=== PATIENT | male | born 1940 | race Caucasian/White ===

== ENCOUNTER 2020-05-11 12:39 | Outpatient (CLI) | payer MEDICARE, BC | END 2020-05-11 23:59 | disposition home or self-care (01) | LOC: VAS 12:39 | PROVIDERS: ATTEND Specialist | DX: G45.9 Transient cerebral ischemic attack, unspecified (principal); H53.9 Unspecified visual disturbance; R42 Dizziness and giddiness | CPT/HCPCS: 93880 ==

== ENCOUNTER 2020-06-04 08:28 | Outpatient (CLI) | payer MEDICARE, BC ==
[2020-05-30 10:09] LABS: BLOOD UREA NITROGEN 24 MG/DL (7-18); CREATININE 1.15 MG/DL (0.60-1.10); eGFR 61 ML/MIN
[2020-06-04] MEDS ORDERED: iohexol 350MG/ML 100ml bottle IV ONE (09:08)
== END 2020-06-04 23:59 | disposition home or self-care (01) ==
LOC: 64 CT 08:28
PROVIDERS: ATTEND Surgery
DX: Z01.818 Encounter for other preprocedural examination (principal)
CPT/HCPCS: 36415; 70498; 82565; 84520; Q9967

== ENCOUNTER 2021-12-02 04:42 | Emergency (ER) | payer MEDICARE, BC ==
[~2021-12-02] VITALS: Ht 190.5 cm; Wt 81.8 kg
[~2021-12-02 04:42] MED LIST: AMLO2.5T2 PO; ASCO-157 PO; ASPI-1264 PO; BETA1POW PO; CHOL2400 PO; FINA5TAB11 PO; LEVO175T2 PO; LISI40TA13 PO; ROSU10TA2 PO; UBIQ100C2 PO; ZINC30TA2 PO; [UNRECOGNIZED DRUG - CODE] PO
[2021-12-02 04:55] VITALS: BP 179/94
[2021-12-02 05:42] LABS: BASOPHILS % (AUTO) 0.9 % (0-1); EOSINOPHILS # (AUTO) 0.2 X10'3 (0-0.9); EOSINOPHILS % (AUTO) 3.9 % (0-6); HEMATOCRIT 41.4 % (42.0-52.0); HEMOGLOBIN 14.1 g/dl (14.0-17.9); LYMPHOCYTES # (AUTO) 1.1 X10'3 (1.1-4.8); LYMPHOCYTES % (AUTO) 27.9 % (21-51); MEAN CORPUSCULAR HEMOGLOBIN 31.5 PG (27.0-31.0); MEAN CORPUSCULAR VOLUME 92.7 FL (78-98); MEAN PLATELET VOLUME 8.2 FL (7.4-10.4); MONOCYTES # (AUTO) 0.4 X10'3 (0-0.9); MONOCYTES % (AUTO) 9.6 % (2-12); NEUTROPHILS # (AUTO) 2.3 X10'3 (1.8-7.7); NEUTROPHILS % (AUTO) 57.7 % (42-75); PLATELET COUNT 177 X10'3 (140-440); RED BLOOD COUNT 4.47 X10'6 (4.70-6.10); RED CELL DISTRIBUTION WIDTH 13.5 % (11.5-14.5)
[2021-12-02 05:55] LABS: ALANINE AMINOTRANSFERASE 56 U/L (12-78); ALBUMIN/GLOBULIN RATIO 1.2 (1.1-1.5); ALKALINE PHOSPHATASE 55 IU/L (46-116); ANION GAP 9 (8-16); ASPARTATE AMINO TRANSFERASE 49 U/L (10-37); BILIRUBIN,TOTAL 0.4 MG/DL (0.1-1.0); BLOOD UREA NITROGEN 24 MG/DL (7-18); BUN/CREATININE RATIO 19.2 (5.4-32.0); CALCIUM 8.7 MG/DL (8.5-10.1); CHLORIDE 106 MMOL/L (99-107); CREATININE 1.25 MG/DL (0.60-1.10); GLUCOSE 113 MG/DL (70-104); POTASSIUM 4.1 MMOL/L (3.5-5.1); SODIUM 144 MMOL/L (135-145); TOTAL PROTEIN 7.4 G/DL (6.4-8.2); eGFR 55 ML/MIN
[2021-12-02 06:03] LABS: MAGNESIUM 2.1 MG/DL (1.5-2.4)
== END 2021-12-02 07:42 | disposition left against medical advice (07) ==
LOC: ER 04:43
DX: R07.9 Chest pain, unspecified (principal); R42 Dizziness and giddiness; Z88.2 Allergy status to sulfonamides; Z95.1 Presence of aortocoronary bypass graft; Z79.899 Other long term (current) drug therapy
CPT/HCPCS: 36415; 71045; 80053; 83735; 83880; 84484; 85025; 93005; 99285

== ENCOUNTER 2021-12-15 12:45 | Outpatient (CLI) | payer MEDICARE, BC | END 2021-12-15 23:59 | disposition home or self-care (01) | LOC: ER 12:45 | PROVIDERS: ATTEND Surgery | DX: N39.0 Urinary tract infection, site not specified (principal) | CPT/HCPCS: 76770 ==

== ENCOUNTER 2022-05-04 19:45 | Emergency (ER) | payer MEDICARE, BC ==
[~2022-05-04] VITALS: Ht 190.5 cm; Wt 79.5 kg
[2022-05-04 19:59] LABS: BASOPHILS % (AUTO) 0.8 % (0-1); EOSINOPHILS # (AUTO) 0.1 X10'3 (0-0.9); EOSINOPHILS % (AUTO) 1.8 % (0-6); HEMOGLOBIN 13.9 g/dl (14.0-17.9); LYMPHOCYTES # (AUTO) 1.1 X10'3 (1.1-4.8); LYMPHOCYTES % (AUTO) 18.3 % (21-51); MEAN CORPUSCULAR HEMOGLOBIN 32.5 PG (27.0-31.0); MEAN CORPUSCULAR HGB CONC 34.7 g/dL (33.0-36.5); MEAN CORPUSCULAR VOLUME 93.6 FL (78-98); MEAN PLATELET VOLUME 7.7 FL (7.4-10.4); MONOCYTES # (AUTO) 0.6 X10'3 (0-0.9); MONOCYTES % (AUTO) 10.1 % (2-12); NEUTROPHILS # (AUTO) 4.1 X10'3 (1.8-7.7); PLATELET COUNT 204 X10'3 (140-440); RED BLOOD COUNT 4.27 X10'6 (4.70-6.10); RED CELL DISTRIBUTION WIDTH 13.4 % (11.5-14.5); WHITE BLOOD COUNT 5.9 X10'3 (4.5-11.0)
[2022-05-04 20:20] LABS: ALANINE AMINOTRANSFERASE 45 U/L (12-78); ALBUMIN 4.4 G/DL (3.4-5.0); ALBUMIN/GLOBULIN RATIO 1.3 (1.1-1.5); ALKALINE PHOSPHATASE 72 IU/L (46-116); ANION GAP 5 (8-16); ASPARTATE AMINO TRANSFERASE 58 U/L (10-37); BILIRUBIN,TOTAL 0.5 MG/DL (0.1-1.0); BLOOD UREA NITROGEN 31 MG/DL (7-18); BUN/CREATININE RATIO 24.8 (5.4-32.0); CALCIUM 9.3 MG/DL (8.5-10.1); CHLORIDE 105 MMOL/L (99-107); CREATININE 1.25 MG/DL (0.60-1.10); GLUCOSE 177 MG/DL (70-104); MAGNESIUM 2.2 MG/DL (1.5-2.4); POTASSIUM 4.2 MMOL/L (3.5-5.1); SODIUM 139 MMOL/L (135-145); TOTAL CARBON DIOXIDE 29.1 MMOL/L (24-32); TOTAL PROTEIN 7.7 G/DL (6.4-8.2); eGFR 55 ML/MIN
[2022-05-04] MEDS ORDERED: aspirin 81mg tab.chew PO ONE (20:50)
[2022-05-04] MEDS ORDERED: nitroGLYCERIN 0.2mg/hour patch TD ONE (20:50)
[2022-05-04] MEDS ORDERED: temazepam 15mg capsule PO PRN (21:00)
[2022-05-04 21:17] LABS: APTT 27 SECONDS (22-32)
[2022-05-04] MEDS ORDERED: nitroGLYCERIN 0.4mg SUBLingual tab SL PRN (21:20)
[2022-05-04] MEDS ORDERED: potassium Cl 40MEQ/1/2NS 520ml 520 ML IV PRN (21:20)
[2022-05-04] MEDS ORDERED: morphine 2 MG/ML inj. syringe IV PRN ×2 (21:20)
[2022-05-04] MEDS ORDERED: aminophylline 250mg/10ml inj. IV PRN (21:20)
[2022-05-04] MEDS ORDERED: normal saline 1000ml 1,000 ML IV SCH (21:20)
[2022-05-04] MEDS ORDERED: ondansetron/PF 4mg/2ml inj IV PRN (21:20)
[2022-05-04] MEDS ORDERED: magnesium 4gm in 100ml NS 100 ML IV PRN (21:20)
[2022-05-04] MEDS ORDERED: HYDROcodone/acetaminophen 10/325mg tab PO PRN (21:20)
[2022-05-04] MEDS ORDERED: magnesium Cl slow-release 64mg tablet PO PRN (21:20)
[2022-05-04] MEDS ORDERED: regadenoson 0.4mg/5ml syringe IV PRN (21:20)
[2022-05-04] MEDS ORDERED: metoprolol tartrate 1mg/ml inj IV PRN (21:20)
[2022-05-04] MEDS ORDERED: potassium Cl 20 mEq SR tablet PO PRN ×2 (21:20)
[2022-05-04] MEDS ORDERED: acetaminophen 325mg tablet PO PRN ×2 (21:20)
[2022-05-04] MEDS ORDERED: HYDROcodone/acetaminophen 5mg/325mg tablet PO PRN (21:20)
[2022-05-04 22:08] VITALS: BP 135/97
[2022-05-05] MEDS ORDERED: heparin, porcine 5000 units/ml vial SQ SCH (08:00)
== END 2022-05-04 22:12 | disposition home or self-care (01) ==
LOC: ER 19:46 → ED HOLD 21:24 → UNDOADMIN 21:24 → ER 22:12 → UNDODISIN 22:12
DX: I20.0 Unstable angina (principal); Z95.1 Presence of aortocoronary bypass graft; Z88.2 Allergy status to sulfonamides; Z79.82 Long term (current) use of aspirin; Z79.899 Other long term (current) drug therapy
CPT/HCPCS: 36415; 71045; 80053; 83735; 83880; 84484; 85025; 85610; 85651; 85730; 93005; 99285; G0378